=== PATIENT | female | born 1930 | race Caucasian/White ===

== ENCOUNTER → 2016-06-13 | Day surgery (SDC) | payer MEDICARE ==
[~2016-06-13] VITALS: Ht 154.9 cm; Wt 68.5 kg
[~2016-06-13] MED LIST: ABIL2TAB2 PO; CEPH-459 PO; DO NOT ADM ANY ANTICOAGULANT DRUGS XX PRN; INSULIN HUMAN REGULAR 1,000 UNITS/10 ML VIAL SQ PRN; IOHEXOL 350 MG/ML 50 ML BTL (for RAD DIAG) ONE; LACTATED RINGER'S 1000 ML IV SCH; LORA-373 PO; LOVA40TA PO; METOPROLOL TARTRATE 25 MG TAB PO PRN; MIDAZOLAM HCL 2 MG/2 ML VIAL ONE; MULT-135 PO; MULTTAB67 PO; NIFE1TAB86 PO; ONDANSETRON HCL 4 MG/2 ML VIAL IV PUSH ONE; ONDANSETRON HCL 4 MG/2 ML VIAL IV PUSH PRN; PAXI20TA PO; PHEN0.4T PO; PROPOFOL 200 MG/20 ML AMP IV ONE; SODIUM CHLORID 0.9% 500 ML IV SCH; TOVI4TAB PO; ceFAZolin INJ 1,000 MG VIAL IV ONE; fentaNYL CITRATE 250 MCG/5 ML AMP ONE; oxyCODONE/ACETAMINOPHEN 5 MG/325 MG TAB PO PRN
[2016-06-13 11:30] VITALS: BP 142/57; PULSE 82; RESP 20; TEMP 98.6; O2SAT 100
[2016-06-13 11:33] LABS: BASOPHIL % 0.7 % (0.0-2.0); EOSINOPHIL # 0.1 TH/MM3 (0-0.4); EOSINOPHIL % 3.3 % (0.0-4.0); HEMATOCRIT 28.6 % (35.0-46.0); HEMO FLAGS DIFF FINAL; LYMPH % 14.1 % (9.0-44.0); LYMPHOCYTE # 0.6 TH/MM3 (1.0-4.8); MEAN CELL VOLUME 86.9 FL (80.0-100.0); MEAN CORPUSCULAR HEMOGLOBIN 28.9 PG (27.0-34.0); MEAN CORPUSCULAR HGB CONC 33.2 % (32.0-36.0); MONO % 11.9 % (0.0-8.0); PLATELET COUNT 180 TH/MM3 (150-450); RED BLOOD COUNT 3.29 MIL/MM3 (4.00-5.30); RED CELL DISTRIBUTION WIDTH 18.5 % (11.6-17.2); WHITE BLOOD COUNT 4.3 TH/MM3 (4.0-11.0)
[2016-06-13 16:05] VITALS: BP 106/42; PULSE 76; RESP 18; TEMP 97.7; O2SAT 97
--- NOTE | 2016-06-14 06:46 | MP ---
cc: SUSAN MARK MD DATE OF SURGERY 06/13/2016 INDICATIONS FOR PROCEDURE This is the case of a pleasant 85-year-old female with a history of bladder cancer causing right ureteral obstruction who is status post antegrade right stent placement followed by radiation therapy and chemotherapy. The patient presents today to reassess her bladder and to possibly replace the right stent if indicated. PREOPERATIVE DIAGNOSIS History of right ureteral obstruction secondary to bladder cancer. POSTOPERATIVE DIAGNOSIS History of bladder cancer without evidence of recurrent disease or ureteral obstruction. ATTENDING SURGEON Dr. Mark ANESTHESIA General PROCEDURES PERFORMED Cystoscopy, removal of right ureteral stent and right retrograde pyelogram. COMPLICATIONS None ESTIMATED BLOOD LOSS None SPECIMENS Old right ureteral stent which was discarded. OPERATIVE PROCEDURE IN DETAIL The patient was brought to the operating room suite, placed supine on the cystoscopy table. She was then placed under general anesthesia. She was then repositioned in the dorsal lithotomy position and prepped and draped in a normal sterile fashion. After an appropriate time-out was undertaken, I proceeded with cystoscopic evaluation utilizing the rigid cystoscope with the 22-[place] Islander sheath and the 30 degrees lens. The previously passed right ureteral stent could be seen protruding from the right ureteral orifice. There was no evidence of any definitive recurrent bladder tumor formation. The trigone and area adjacent to the ureteral orifice was erythematous consistent with recent radiation therapy. I then proceeded with removing the stent by grasping it with flexible grasping forceps and removing it. I carefully inspected the stent to make certain it was entirely removed and no stent fragments were left behind. Upon removal of the stent, I inspected the right ureteral orifice and was noted to see efflux of urine. I then proceeded with utilizing a 6-[place] Islander open-ended ureteral catheter and performed the right retrograde pyelogram. There was prompt filling and drainage of a dilated right collecting system. The bladder was next drained of all irrigant fluid and the cystoscope was withdrawn. The patient tolerated the procedures without complications and was transferred to the PACU in satisfactory condition. MD IVETTE Luna/VIOLET /2:49 PM /6:39 AM
== END | disposition home or self-care (01) ==
LOC: HSDC 10:30
PROVIDERS: ATTEND Urology
DX: Z85.51 Personal history of malignant neoplasm of bladder (principal); N13.5 Crossing vessel and stricture of ureter without hydronephrosis
CPT/HCPCS: 00910; 52005; 74420; 85025; C1769; J0690; J2250; J2405; J3010; Q9967

== ENCOUNTER 2016-12-20 09:30 | Day surgery (SDC) | payer MEDICARE ==
[~2016-12-20] VITALS: Ht 152.4 cm; Wt 65.0 kg
[~2016-12-20 09:30] MED LIST changes: -ABIL2TAB2 PO; -CEPH-459 PO; -DO NOT ADM ANY ANTICOAGULANT DRUGS XX PRN; -INSULIN HUMAN REGULAR 1,000 UNITS/10 ML VIAL SQ PRN; -IOHEXOL 350 MG/ML 50 ML BTL (for RAD DIAG) ONE; -LACTATED RINGER'S 1000 ML IV SCH; -LORA-373 PO; -METOPROLOL TARTRATE 25 MG TAB PO PRN; -MIDAZOLAM HCL 2 MG/2 ML VIAL ONE; -MULT-135 PO; -NIFE1TAB86 PO; -ONDANSETRON HCL 4 MG/2 ML VIAL IV PUSH ONE; -ONDANSETRON HCL 4 MG/2 ML VIAL IV PUSH PRN; -PHEN0.4T PO; -PROPOFOL 200 MG/20 ML AMP IV ONE; -SODIUM CHLORID 0.9% 500 ML IV SCH; -TOVI4TAB PO; -ceFAZolin INJ 1,000 MG VIAL IV ONE; -fentaNYL CITRATE 250 MCG/5 ML AMP ONE; -oxyCODONE/ACETAMINOPHEN 5 MG/325 MG TAB PO PRN
[2016-12-20 09:52] VITALS: BP 157/70; PULSE 69; RESP 20; TEMP 99.3; O2SAT 97
[2016-12-20] MEDS ORDERED: NIFE10 PO (10:07)
[2016-12-20] MEDS ORDERED: NIFE60TA58 PO (10:07)
[2016-12-20] MEDS ORDERED: MIRT1TAB PO (10:08)
[2016-12-20] MEDS ORDERED: LEVOFLOXACIN 500 MG PREMIX 100 ML - nephrostomy tube insertion or exchange IV SCH (10:15)
[2016-12-20] MEDS ORDERED: SODIUM CHLORIDE 0.9% 1000 ML IV SCH (10:15)
[2016-12-20 10:32] LABS: AUTOMATED NEUTROPHIL # 3.9 TH/MM3 (1.8-7.7); BASOPHIL % 0.6 % (0.0-2.0); EOSINOPHIL # 0.1 TH/MM3 (0-0.4); EOSINOPHIL % 2.3 % (0.0-4.0); HEMATOCRIT 37.2 % (35.0-46.0); HEMO FLAGS DIFF FINAL; LYMPH % 16.8 % (9.0-44.0); LYMPHOCYTE # 0.9 TH/MM3 (1.0-4.8); MEAN CELL VOLUME 88.9 FL (80.0-100.0); MEAN CORPUSCULAR HEMOGLOBIN 28.6 PG (27.0-34.0); MEAN CORPUSCULAR HGB CONC 32.2 % (32.0-36.0); MONO % 8.2 % (0.0-8.0); NEUT % 72.1 % (16.0-70.0); PLATELET COUNT 164 TH/MM3 (150-450); RED BLOOD COUNT 4.19 MIL/MM3 (4.00-5.30); RED CELL DISTRIBUTION WIDTH 15.9 % (11.6-17.2); WHITE BLOOD COUNT 5.4 TH/MM3 (4.0-11.0)
[2016-12-20 10:42] LABS: APTT (PATIENT) 25.8 SEC (24.3-30.1); INTERNATIONAL NORMALIZED RATIO 0.9 RATIO
[2016-12-20 11:13] LABS: BICARBONATE 20.6 MEQ/L (21.0-32.0); POTASSIUM 5.1 MEQ/L (3.5-5.1)
[2016-12-20] MEDS ORDERED: fentaNYL CITRATE 250 MCG/5 ML AMP ONE (12:02)
[2016-12-20] MEDS ORDERED: MIDAZOLAM HCL 5 MG/5 ML VIAL ONE (12:02)
[2016-12-20 13:15] VITALS: BP 144/59; PULSE 77; RESP 18; TEMP 98.7; O2SAT 96
--- NOTE | 2016-12-20 13:16 | PD.RAD ---
Post Procedure Progress Note Pre Procedure Diagnosis: (1) Acute unilateral obstructive uropathy (2) Bladder cancer Post Procedure Diagnosis: (1) Acute unilateral obstructive uropathy (2) Bladder cancer Procedure Date: Dec 20, 2016 Supervising Radiologist: Cj Baeza JR Proceduralist/Assist: Shaquille Arvizu, RT(R), Silvestre Low, RT(R) Anesthesia: Conscious Sedation Plan of Activity Patient to Unit: ROPU Patient Condition: Good See PACS Report for procedural detail/treatment Drainage Procedure Procedure 1 Imaging Guidance: Fluoroscopy, Ultrasound Side: Right Procedure Type: Nephrostomy, Ureteral Stent Procedure: Placement Chinese: 8 Fluid Description: Clear Findings: Occlusion of right ureter at UVJ. Successful placement of nephro-ureteral tube. Plan May cap tube in 24 hours if urine clear. If not clear await clearance of any blood in urine before capping tube. Place tube back to drainage if develop right flank pain, nausea or fever. Jr. Aryan,Cj Silva MD Dec 20, 2016 13:16
[2016-12-20 13:30] VITALS: BP 128/69; PULSE 67; RESP 18; O2SAT 99
[2016-12-20 14:00] VITALS: BP 128/69; PULSE 64; RESP 18; O2SAT 99
[2016-12-20] MEDS ORDERED: IOHEXOL 350 MG/ML 50 ML BTL (for RAD DIAG) OTHER ONE (14:26)
[2016-12-20 14:30] VITALS: BP 125/52; PULSE 65; RESP 18; O2SAT 98
--- NOTE | 2016-12-20 14:56 | RADRPT ---
EXAM DATE/TIME: 12/20/2016 11:54 [facility] COMPARISON: No previous studies available for comparison. INDICATIONS : Patient presents with right ureteral obstruction in need of nephroureteral stent placement. Bladder c ancer. MEDICAL HISTORY : Hypertension Depression recent slight tremor Anxiety Hyperlipidemia GERD SURGICAL HISTORY : Gallbladder Hysterectomy Hand surgery ENCOUNTER: Initial ACUITY: 3 months PAIN SCORE: 0/10 LOCATION: N/A FLUORO TIME: 7.9 minutes IMAGE SERIES: 10 SEDATION TIME: 30 minutes CONTRAST: 30 cc Omnipaque (iohexol) 350 MEDICATION(S): 1.) 4 mg midazolam (Versed) IV 2.) 200 mcg fentanyl (Sublimaze) IV DEVICE(S): 1.) 8 Latvian 8FR X 22CM nephroureteral stent PROCEDURE : 1. Ultrasound-guided puncture of the kidney. 2. Antegrade percutaneous pyelogram. 3. Ureteroplasty of the ureterovesical junction. 4. Percutaneous nephroureteral stent placement. 5. Conscious sedation with continuous EKG and oximetry monitoring. I reviewed the prior PET/CT from [facility] September 13, 2016. The risks, benefits and alternatives to t he procedure were explained and verbal and written consent was obtained. The site was prepped in bee rile fashion. Full sterile technique was used, including cap, mask, sterile gloves and gown and a la rge sterile sheet. Hand hygiene and 2% chlorhexidine and/or betadine/alcohol prep was utilized per p diana for cutaneous antisepsis. The skin and subcutaneous tissues were infiltrated with local anes thetic solution. With ultrasound and fluoroscopic guidance the right kidney was punctured and a percutaneous antegrade pyelogram was performed demonstrating a dilated collecting system. The dilatation extends down to a ureteral occlusion at the UVJ. The initial access was closer to the renal pelvis and therefore a seco nd access and the final access utilized involving the lower pole calyx was performed. The ureteral st ent would not traverse the occlusion and therefore a 4 mm balloon was utilized to gently opened up th e UVJ to allow passage of the tube. Serial dilatation was performed and the prescribed nephroureteral stent was placed with the proximal portion within the renal pelvis and the distal extent in the urin maxi bladder. A silk suture was utilized to anchor the tube. No significant hematuria seen. Injection of positive contrast demonstrates good position of the catheter. Conscious sedation was performed with the prescribed dosages and duration as above in the presence of an independent trained radiology nurse to assist in the monitoring of the patient. EKG and oximetry remained stable throughout the procedure. The patient tolerated the procedure well and there were n o complications. The patient was sent to post anesthesia recovery in stable condition. CONCLUSION: Occlusion of the right collecting system at the UVJ. No stone or obstructing mass but rather simply a brupt tapering of the ureter. This necessitated gentle ureteroplasty to allow passage of the nephrour eteral catheter. Clear urine noted without significant hematuria. In 24 hours the patient can cap the tube to allow internal drainage. Cj Baeza Jr., MD on December 20, 2016 at 14:45 Board Certified Radiologist. This report was verified electronically.
== END 2016-12-20 15:46 | disposition home or self-care (01) ==
LOC: HROP 09:30 → HRIP 09:32 → HROP 15:46
PROVIDERS: ATTEND Urology
DX: N13.9 Obstructive and reflux uropathy, unspecified (principal); C67.9 Malignant neoplasm of bladder, unspecified; I10 Essential (primary) hypertension; E78.5 Hyperlipidemia, unspecified; K21.9 Gastro-esophageal reflux disease without esophagitis; F32.9 Major depressive disorder, single episode, unspecified; F41.9 Anxiety disorder, unspecified
CPT/HCPCS: 50395; 50433; 74360; 80048; 85025; 85610; 85730; 99152; 99153; C1725; C1769; C1877; C1887; C1894; J1956; J2250; J3010; J7030; Q9967

== ENCOUNTER → 2017-01-08 | Day surgery (SDC) | payer MEDICARE ==
[~2017-01-08] VITALS: Ht 152.4 cm; Wt 66.6 kg
[~2017-01-08] MED LIST changes: +CEPH-459 PO; +CHLORHEXIDINE GLUCONATE 2 % 1 PACK (2 CLOTHS) TOPICAL PRN; +DO NOT ADM ANY ANTICOAGULANT DRUGS PRN; +FAMOTIDINE 20 MG/2 ML VIAL ONE; +INSULIN HUMAN REGULAR 1,000 UNITS/10 ML VIAL SQ PRN; +IOHEXOL 350 MG/ML 50 ML BTL (for RAD DIAG) ONE; +LACTATED RINGER'S 1000 ML INJ 1,000 ML IV ONE; +LACTATED RINGER'S 1000 ML IV PRN; +LORA-373 PO; +METOPROLOL TARTRATE 25 MG TAB PO PRN; +MIDAZOLAM HCL 2 MG/2 ML VIAL ONE; +MIRT1TAB PO; -MULTTAB67 PO; +NIFE60TA58 PO; +ONDANSETRON HCL 4 MG/2 ML VIAL IV PUSH ONE; +ONDANSETRON HCL 4 MG/2 ML VIAL IV PUSH PRN; +PARO20TA2 PO; -PAXI20TA PO; +PERC5TAB12 PO; +POVIDONE IODINE 5% (ANTISEPSIS KIT) 4 APPLICATIONS EACH NARE PRN; +PROPOFOL 200 MG/20 ML AMP IV ONE; +SODIUM CHLORID 0.9% 500 ML IV PRN; +SODIUM CHLORIDE 0.9% INJ 100 ML ONE; +ceFAZolin 1,000 MG/NS 100 ML IV SCH; +ceFAZolin INJ 1,000 MG VIAL ONE; +oxyCODONE/ACETAMINOPHEN 5 MG/325 MG TAB PO PRN
[2017-01-08 08:36] VITALS: BP 135/66; PULSE 70; RESP 16; TEMP 97.8; O2SAT 99
--- NOTE | 2017-01-08 11:23 | PD.OP ---
Operative Report Date of Surgery: Jan 08, 2017 Preoperative Diagnosis: (1) Ureteral obstruction, right (2) History of bladder cancer Postoperative Diagnosis: (1) Ureteral obstruction, right (2) History of bladder cancer Procedure: Cystoscopy, removal of right nephroureteral tube, right retrograde pyelogram, right fpc ureteral stent placement and bladder biopsies 2 Anesthesia: General Surgeon: Leoncio Mark Fitting Supervisor(s): None Operation and Findings: Indication for procedure: Case of a pleasant 86-year-old female with history of bladder cancer involving the right ureteral orifice who is status post transurethral resection followed by chemotherapy and radiation therapy. During recent follow up cystoscopic evaluation the patient was noted to have total occlusion of the right ureteral orifice and a right nephroureteral tube was placed by interventional radiology. Patient presents now for cystoscopy, removal of right nephroureteral tube, right retrograde pyelogram, right fpc ureteral stent insertion and bladder biopsies. Operative procedure in detail: Patient was brought to the operating room suite and placed supine on the cystoscopy table. She was next placed and general anesthesia. She was then repositioned in the dorsal lithotomy position and prepped and draped in normal sterile fashion. After appropriate timeout was undertaken I proceeded with cystoscopic evaluation utilizing the rigid cystoscope with a 20 Mongolian sheath and 30 lens. Both right and left ureteral orifices were in correct anatomic position. The right sided nephroureteral tube could be seen protruding from the right ureteral orifice. I next was able to advance a sensor 0.035 wire up the right ureter adjacent to the right nephroureteral tube under cystoscopic and fluoroscopic guidance. With the guidewire fully advanced within the right renal pelvis I subsequently removed the right nephroureteral ureteral tube from above. The retaining stitch as well as the tethering cord were freed and the tube was easily removed. A sterile dressing was placed at the nephroureteral tube entry site. I next advanced a 6 Mongolian open-ended ureteral catheter over the previously past wire and the wire was withdrawn. A right retrograde pyelogram was then performed. The sensor wire was reintroduced via the ureteral catheter and the catheter exchanged for a 6 Mongolian 22 cm fpc Grubbs stent. The stent was placed on the both cystoscopic and fluoroscopic guidance without difficulty. Once the stent was in proper position the trailing string was removed. I then proceeded with taking 2 random biopsies utilizing the cup forceps from the right bladder wall. The biopsy sites within fulgurate with the Bugbee electrode. A 16 Mongolian 10 cc Fermin catheter was then placed and connected to gravity drainage. The patient tolerated the procedures without complications and was transferred to the PACU in satisfactory condition. Leoncio Mark MD Jan 08, 2017 11:23
[2017-01-08 13:00] VITALS: BP 135/64; PULSE 78; RESP 18; TEMP 97.8; O2SAT 97
== END | disposition home or self-care (01) ==
LOC: HSDC 07:57
PROVIDERS: ATTEND Urology
DX: N13.5 Crossing vessel and stricture of ureter without hydronephrosis (principal); Z85.51 Personal history of malignant neoplasm of bladder; Z92.3 Personal history of irradiation; Z92.21 Personal history of antineoplastic chemotherapy
CPT/HCPCS: 00910; 52204; 52332; 74420; 76000; 88305; C1769; J0690; J2250; J2405; J3010; J7120; Q9967; 88307

== ENCOUNTER → 2017-07-03 | Day surgery (SDC) | payer MEDICARE ==
[~2017-07-03] MED LIST changes: +ACETAMINOPHEN/HYDROcodone 325 MG/5 MG TAB PO PRN; +ARTIFICIAL TEARS OPTH OINT 3.5 APPLIC/3.5 GM TUBO ONE; +BACITRACIN OPHT OINT 3.5 GM TUBO ONE; +BACITRACIN TOP OINT 15 GM TUBE ONE; +BUPIVACAINE HCL PF 0.5% 30 ML VIAL ONE; -CEPH-459 PO; +DEXAMETHASONE SOD PHOS 4 MG/ML VIAL IV ONE; -DO NOT ADM ANY ANTICOAGULANT DRUGS PRN; -FAMOTIDINE 20 MG/2 ML VIAL ONE; +HYDR-3516 PO; -INSULIN HUMAN REGULAR 1,000 UNITS/10 ML VIAL SQ PRN; -IOHEXOL 350 MG/ML 50 ML BTL (for RAD DIAG) ONE; -LACTATED RINGER'S 1000 ML INJ 1,000 ML IV ONE; +LIDOCAINE 1%/EPINEPHrine 1:100,000 SOLN 30 ML VIAL ONE; +LIDOCAINE HCL 1% PF 5 ML SYRINGE OTHER ONE; -LORA-373 PO; +LORA0.5T PO; +LORazepam 0.5 MG TAB PO PRN; -MIDAZOLAM HCL 2 MG/2 ML VIAL ONE; +MINERAL OIL 10 ML VIAL ONE; +MIRTAZAPINE 15 MG TAB PO SCH; +NIFEdipine 60 MG SUSTAINED RELEASE TAB PO SCH; +NON-FORMULARY DRUG (Paroxetine (Paxil) 20 MG) PO SCH; -ONDANSETRON HCL 4 MG/2 ML VIAL IV PUSH PRN; +PARoxetine HCL 20 MG TAB PO SCH; +PAXI10TA8 PO; +PHENYLEPH/NS 1000 MCG/10 ML SYR IV ONE; +PRAVASTATIN SOD 40 MG TAB PO SCH; -SODIUM CHLORIDE 0.9% INJ 100 ML ONE; -ceFAZolin 1,000 MG/NS 100 ML IV SCH; +ceFAZolin 2 GM PREMIX 50 ML IV SCH; -ceFAZolin INJ 1,000 MG VIAL ONE; +ePHEDrine/NS 25 MG/5 ML SYRINGE IV ONE; -oxyCODONE/ACETAMINOPHEN 5 MG/325 MG TAB PO PRN
[2017-07-03 10:44] LABS: CHLORIDE 113 MEQ/L (98-107); SODIUM (NA) 142 MEQ/L (136-145)
[2017-07-03 10:47] LABS: ALBUMIN 3.5 GM/DL (3.4-5.0); BICARBONATE 20.1 MEQ/L (21.0-32.0); GLUCOSE,RANDOM 105 MG/DL (74-106)
[2017-07-03 10:48] LABS: BLOOD UREA NITROGEN 33 MG/DL (7-18)
[2017-07-03 10:50] LABS: ALT (GPT) 14 U/L (10-53); AST (GOT) 16 U/L (15-37)
[2017-07-03 10:51] LABS: GLOMERULAR FILTRATION RATE 22 ML/MIN (>89)
[2017-07-03 10:52] LABS: TOTAL BILIRUBIN ADULT 0.2 MG/DL (0.2-1.0); TOTAL PROTEIN 6.8 GM/DL (6.4-8.2)
[2017-07-03 10:53] LABS: ALKALINE PHOSPHATASE 83 U/L (45-117)
[2017-07-03 12:30] VITALS: PULSE 82
[2017-07-03 14:30] VITALS: BP 140/50; PULSE 80; RESP 16; TEMP 98.2; O2SAT 99
--- NOTE | 2017-07-24 16:24 | MP ---
cc: RENATO RAYMUNDO M.D. DATE OF SURGERY 07/03/2017 PREOPERATIVE DIAGNOSIS 1. Biopsy-proven basal cell carcinoma involving the tip of the nose. 2. Left cheek. 3. Left lower eyelid. POSTOPERATIVE DIAGNOSIS 1. Biopsy-proven basal cell carcinoma involving the tip of the nose. 2. Left cheek. 3. Left lower eyelid. OPERATION Excision frozen section. 1. Basal cell carcinoma nose 3 X 2 cm excision. Reconstruction with full-thickness skin graft from left neck. 2. Excision basal cell carcinoma left cheek 2.5 x 1.5 cm frozen section and primary closure. 3. Excision basal cell carcinoma left lower eyelid skin 2.5 x 1.5 cm excision. Frozen section and full-thickness skin graft from the left. SURGEON Dr. Raymundo ANESTHESIA General INDICATIONS An 86-year-old white female with biopsy-proven basal cell carcinoma involving the three areas on her face. She underwent simple general explanation of the procedure and need for skin graft to reconstruction of the area. She is able to communicate and understand the process and is willing to go ahead with surgery. The family was helping her, she is 86 years old. PROCEDURE DETAILS The patient was brought to the operating room, was given supine position. Anesthesia was started. Prep and drape was done. Time-out was called . Preoperative markings were reinforced. Local anesthetic lidocaine 1% with epi diluted in saline was used. All the areas were injected and the lesions excised down through subcutaneous level. Suture marked superior and sent for frozen section. The hemostasis was completed in all areas. The size of the defects are listed in the paragraph above. The left cheek area was able to be closed primarily with internal inverting Vicryl sutures. The areas on the nose and the left lower eyelid needed a full-thickness skin graft. This was harvested from the left neck, mid posterior portion. The donor site was closed with 4-0 Vicryl, internal sutures as well. The graft was sutured in with 5-0 chromic interrupted sutures in both places. A slightly oversized graft had been taking. The frozen section report issued in the meantime indicated clear margin on all three specimens. The graft insetting was completed. Sterile dressing including Xeroform, moist cotton padding and Steri-Strips were used to cover all the areas. Steri-Strip was applied to the left neck as well. All the areas were covered. The patient was allowed to recover from anesthesia. Intraoperative blood loss minimal, less than 10-15 mL. No complications. MD BIN Nunes/BLADIMIR /8:39 PM /4:03 PM
== END | disposition home or self-care (01) ==
LOC: PHSDC 09:16
PROVIDERS: ATTEND Plastic Surgery
DX: C44.319 Basal cell carcinoma of skin of other parts of face (principal); C44.311 Basal cell carcinoma of skin of nose; I10 Essential (primary) hypertension; I70.0 Atherosclerosis of aorta; C67.9 Malignant neoplasm of bladder, unspecified; K59.00 Constipation, unspecified; H25.13 Age-related nuclear cataract, bilateral; D35.00 Benign neoplasm of unspecified adrenal gland; K31.84 Gastroparesis; K21.9 Gastro-esophageal reflux disease without esophagitis; M81.0 Age-related osteoporosis without current pathological fracture; N25.81 Secondary hyperparathyroidism of renal origin; K76.89 Other specified diseases of liver; R53.83 Other fatigue
CPT/HCPCS: 11643; 11644; 15240; 15260; 36415; 80053; 88305; 88331; J0690; J1100; J2370; J2405; J3010; J7120

== ENCOUNTER → 2017-11-12 | Day surgery (SDC) | payer MEDICARE ==
[~2017-11-12] VITALS: Ht 154.9 cm; Wt 75.0 kg
[~2017-11-12] MED LIST changes: -ACETAMINOPHEN/HYDROcodone 325 MG/5 MG TAB PO PRN; +ARIP1TAB16 PO; -ARTIFICIAL TEARS OPTH OINT 3.5 APPLIC/3.5 GM TUBO ONE; -BACITRACIN OPHT OINT 3.5 GM TUBO ONE; -BACITRACIN TOP OINT 15 GM TUBE ONE; -BUPIVACAINE HCL PF 0.5% 30 ML VIAL ONE; +CEPH-459 PO; +DO NOT ADM ANY ANTICOAGULANT DRUGS PRN; -HYDR-3516 PO; -LIDOCAINE 1%/EPINEPHrine 1:100,000 SOLN 30 ML VIAL ONE; -LORazepam 0.5 MG TAB PO PRN; -LOVA40TA PO; -MINERAL OIL 10 ML VIAL ONE; -MIRT1TAB PO; -MIRTAZAPINE 15 MG TAB PO SCH; -NIFEdipine 60 MG SUSTAINED RELEASE TAB PO SCH; -NON-FORMULARY DRUG (Paroxetine (Paxil) 20 MG) PO SCH; +ONDANSETRON HCL 4 MG/2 ML VIAL IV ONE; -ONDANSETRON HCL 4 MG/2 ML VIAL IV PUSH ONE; +ONDANSETRON HCL 4 MG/2 ML VIAL IV PUSH PRN; +ONDANSETRON ODT 4 MG TAB PO PRN; -PARoxetine HCL 20 MG TAB PO SCH; -PAXI10TA8 PO; -PHENYLEPH/NS 1000 MCG/10 ML SYR IV ONE; -PRAVASTATIN SOD 40 MG TAB PO SCH; +ceFAZolin 1,000 MG/NS 100 ML IV SCH; -ceFAZolin 2 GM PREMIX 50 ML IV SCH; +oxyCODONE/ACETAMINOPHEN 5 MG/325 MG TAB PO PRN
[2017-11-12 10:54] LABS: AUTOMATED NEUTROPHIL # 4.3 TH/MM3 (1.8-7.7); BASOPHIL % 0.7 % (0.0-2.0); EOSINOPHIL # 0.1 TH/MM3 (0-0.4); EOSINOPHIL % 1.9 % (0.0-4.0); HEMATOCRIT 36.1 % (35.0-46.0); MEAN CORPUSCULAR HGB CONC 33.3 % (32.0-36.0); MEAN PLATELET VOLUME 8.4 FL (7.0-11.0); MONOCYTE # 0.5 TH/MM3 (0-0.9); NEUT % 72.4 % (16.0-70.0); PLATELET COUNT 172 TH/MM3 (150-450); RED CELL DISTRIBUTION WIDTH 16.2 % (11.6-17.2)
--- NOTE | 2017-11-12 11:50 | PD.OP ---
Operative Report Date of Surgery: Nov 12, 2017 Preoperative Diagnosis: (1) History of bladder cancer Postoperative Diagnosis: (1) History of bladder cancer Procedure: Cystoscopy, right retrograde pyelogram and right ureteral stent exchange Anesthesia: General Surgeon: Leoncio Mark Upholsterer Outside(s): None Operation and Findings: Indication for procedures: Case of a pleasant 87-year-old female with history of a bladder tumor involving the right ureteral orifice who is status post a transurethral resection followed by chemo therapy and radiation therapy. Patient is being managed with an indwelling right ureteral stent to keep the right distal ureter patent. She presents today for cystoscopy, right retrograde pyelogram and right ureteral stent placement. Operative procedure in detail: Patient was brought to the operating room suite and placed supine on the cystoscopy table. She was then placed under general anesthesia. She was then repositioned in the dorsolithotomy position and prepped and draped in normal sterile fashion. After an appropriate timeout was undertaken I proceeded with cystoscopic evaluation utilizing the rigid cystoscope with the 20 Ghanaian sheath and the 30 lens. The previously placed right ureteral stent could be seen protruding from the right ureteral orifice. The left orifice was in normal anatomic position and draining clear yellow urine. There were no areas suspicious for recurrent bladder tumor formation. The distal loop of the right stent was grasped with flexible forceps and retrieved. The cystoscope was reintroduced and a right retrograde pyelogram study was performed utilizing a 6 Ghanaian open-ended ureteral catheter to outline the collecting system. A sensor 0.035 wire was then easily advanced up the right ureter up into the right renal pelvis. A long-term Tyler 6 Ghanaian 22 cm double-J stent was then placed on the both cystoscopic and fluoroscopic guidance without difficulty. Once the stent was in proper position, the trailing string was removed. The patient tolerated the procedures without complications and was transferred to the PACU in satisfactory condition. Plan will be to perform a follow-up cystoscopic evaluation in approximately 6 months time. The stent will need to be exchanged again early next summer. Leoncio Mark MD Nov 12, 2017 11:50
[2017-11-12 13:15] VITALS: BP 143/62; PULSE 74; RESP 18; TEMP 98.5; O2SAT 97
--- NOTE | 2017-11-12 14:43 | EKG ---
Date Performed: 11/12/2017 Time Performed: 10:08:18 PTAGE: 87 years EKG: Sinus rhythm RIGHT BUNDLE BRANCH BLOCK ABNORMAL ECG Since the PREVIOUS TRACING , no significant change noted PREVIOUS TRACIN02/22/2016 15.22 DOCTOR: Nitish North Interpretating Date/Time 11/12/2017 14:41:38
== END | disposition home or self-care (01) ==
LOC: HSDC 09:34
PROVIDERS: ATTEND Urology
DX: C67.9 Malignant neoplasm of bladder, unspecified (principal); I10 Essential (primary) hypertension
CPT/HCPCS: 00910; 52332; 74420; 85025; 93005; C1769; J0690; J1100; J2405; J3010; J7120